=== PATIENT | male | born 1985 | race African-American/Black ===

== ENCOUNTER 2017-05-02 16:30 | Emergency (ER) | payer BC ==
[~2017-05-02] VITALS: Ht 177.8 cm; Wt 87.5 kg
[2017-05-02 20:45] VITALS: BP 148/85
[2017-05-02] MEDS ORDERED: NAPROSYN500 MG PO (21:28)
== END 2017-05-02 21:43 ==
LOC: ER 16:30
DX: S62.92XA Unspecified fracture of left hand, initial encounter for closed fracture (principal); S05.11XA Contusion of eyeball and orbital tissues, right eye, initial encounter; J45.909 Unspecified asthma, uncomplicated; Z88.8 Allergy status to other drugs, medicaments and biological substances; W18.39XA Other fall on same level, initial encounter; Y93.89 Activity, other specified; Y92.89 Other specified places as the place of occurrence of the external cause; Y99.8 Other external cause status